=== PATIENT | male | born 1985 | race Caucasian/White ===

== ENCOUNTER 2018-10-26 09:18 | Outpatient (CLI) | payer OTHER | END 2018-10-26 09:19 | disposition home or self-care (01) | LOC: C.PAT 09:18 | DX: R31.9 Hematuria, unspecified (principal) ==

== ENCOUNTER 2018-10-30 11:37 | Day surgery (SDC) | payer OTHER ==
[2018-10-26 10:01] VITALS: BMI 36.1
[2018-10-30] MEDS ORDERED: Iohexol 240 (50 ml) ONE (12:40)
[2018-10-30] MEDS ORDERED: Lidocaine 2% Jelly (Uro-Jet) ONE (12:40)
[2018-10-30] MEDS ORDERED: Midazolam 2 MG/2 ML VIAL ONE ×2 (13:08→13:24)
[2018-10-30] MEDS: cefTRIAXone 1 gm 1 GM/100 ML BAG IVPB ONE ×2 (13:14→13:20)
[2018-10-30] MEDS ORDERED: HYDROmorphone 0.5 mg/0.5 ml ISec IVP PRN (13:42)
[2018-10-30 14:17] VITALS: PULSE 65; RESP 14; TEMP 97.6
[2018-10-30 14:27] VITALS: O2SAT 99
[2018-10-30 15:06] VITALS: BP 123/69
--- NOTE | 2018-10-31 01:31 | OP ---
PROCEDURE DATE: 10/30/2018 PREOPERATIVE DIAGNOSES: Hematuria, voiding dysfunction, bladder stones. POSTOPERATIVE DIAGNOSES: Hematuria, voiding dysfunction, bladder stones. PROCEDURE: Cystoscopy. SURGEON: Stepan Corrales MD FINDINGS: 1. Normal anterior urethra. 2. No strictures. The verumontanum is not overly visually occlusive, relatively within normal limits. 3. The bladder is mildly trabeculated and stone identified. COMPLICATIONS: There were no complications. No bladder tumors are seen. ESTIMATED BLOOD LOSS: Less than 10 mL. INDICATION: See history and physical. This is a very pleasant gentleman, here for the above procedure. He has a history of spinal surgery as a kid. He has seen Dr. Menendez. He does not seen anybody recently. He is here now for further testing. As above mentioned, he also needs further diagnostic studies and workup for his neurogenic bladder in a 33-year-old. DESCRIPTION OF PROCEDURE: After obtaining informed consent, the patient was placed on the table. Routine monitors were placed. Time-out was called to confirm patient and positioning. The patient was placed in a supine position. Time-out was called. Given this situation, we decided not to place him in lithotomy. We use . No strictures. Pictures were taken and saved. Throughout the procedure, the patient is stable throughout. We went over to distend his bladder. We identified the stone. The patient tolerated the procedure without any complication. We could discuss the options with the patient. further management of stones. We need clearance, and then also the issue would be going in lithotomy, and we have to try to figure out how to do that. If we were able to do lithotomy, we will consider treating stone. We have to discuss the options that are available and the necessity. Further plans, we will follow. The patient tolerated the procedure without complications. Stepan Corrales MD
--- NOTE | 2018-10-31 06:53 | HP ---
UROLOGY ADMISSION HISTORY AND PHYSICAL REASON FOR ADMISSION: For cystoscope. HISTORY OF PRESENT ILLNESS: Mr. Vaca is a very pleasant gentleman. He is just 33-year-old. Mr. Vaca has a history of hematuria. He has a longstanding history of spinal tumor. He had surgery when he is a kid. He is in a wheelchair now but blood in the urine, and he is here now for a cystoscope. We discussed options, locations, risks, benefits and alternatives that were discussed at length, and he is here now. Past medical and surgical history is all listed on the chart. From a urology standpoint, he is seeing Dr. Menendez when he was kid. Of late, he has not been going to anybody. He has been on catheterization. He has not had a problem until recently. He did not have trouble even catheterizing himself. to have blood in urine. I also do want to mention that the patient has a stone in his bladder. He has a stone in his urinary bladder to be seen on a CT scan, see below. This is not what we are addressing today. We are planing for cystoscope to rule out any urethral strictures. In further questioning with the patient, he has been okay but he is definitely noticing that he has been catheterized himself. Past medical and surgical as listed on the chart. He has the above listed history. MEDICATIONS: See chart. ALLERGY: SEE CHART. SOCIAL HISTORY: He is currently not working. He has a wheelchair, gets around fairly well. He is pretty alert and good spirited. He notes voiding as . He is a fairly well spirited patient. PHYSICAL EXAMINATION: GENERAL: A well developed young male, well kempt, hygienic the observation. Body habitus noted and . GENITALIA: He has a normal male phallus without discharge. No specific masses. Penis, the meatus looks within normal limits, not eroded. No appreciable testicular mass. RECTAL: Exam is deferred. DIAGNOSES: Voiding dysfunction, neurogenic bladder, hematuria, and bladder stones. ASSESSMENT: very pleasant gentleman with above history, today we are expecting. We will discuss the possibility for treatment of the stones. We also discussed because it is difficult, we may not be able to go in lithotomy position. So doing a laser may be challenging. We have to see if this is the only source of hematuria. Therefore, we have brought for the treatment. PLAN: 1. Antibiotic prophylaxis. 2. Cystoscopy. Make further plans. We will follow. Stepan Corrales MD
== END 2018-10-30 16:08 | disposition home or self-care (01) ==
LOC: C.SDS 11:37
PROVIDERS: ATTEND Urology
DX: N21.0 Calculus in bladder (principal); N32.89 Other specified disorders of bladder; N31.9 Neuromuscular dysfunction of bladder, unspecified; R31.9 Hematuria, unspecified; Z99.3 Dependence on wheelchair; Z86.69 Personal history of other diseases of the nervous system and sense organs; Z98.890 Other specified postprocedural states
CPT/HCPCS: 52000; C1758; J0696

== ENCOUNTER 2018-12-13 12:07 | Day surgery (SDC) | payer OTHER ==
[2018-10-26 10:01] VITALS: BMI 36.1
[2018-12-13 12:38] LABS: BASO % 0.8 % (0.0-2.0); EOS # 0.1 K/uL (0.0-0.7); EOS % 1.2 % (0.0-4.0); HEMOGLOBIN 16.5 g/dL (12.0-18.0); LYMPH # 1.7 K/uL (1.0-4.3); LYMPH % 27.6 % (20.0-40.0); MEAN CORPUSCULAR HEMOGLOBIN 31.6 pg (27.0-31.0); MEAN CORPUSCULAR HGB CONC 35.2 g/dL (33.0-37.0); MEAN PLATELET VOLUME 8.9 fL (7.2-11.7); MONO # 0.5 K/uL (0.0-0.8); MONO % 7.8 % (0.0-10.0); NEUT # 3.9 K/uL (1.8-7.0); NEUT % 62.6 % (50.0-75.0); RBC 5.23 Mil/uL (4.40-5.90); RED CELL DISTRIBUTION WIDTH 13.3 % (11.5-14.5); WHITE BLOOD COUNT 6.3 K/uL (4.8-10.8)
[2018-12-13 12:47] LABS: PARTIAL THROMBOPLASTIN TIME 32.9 SECONDS (21-34); PROTHROMBIN TIME 11.2 SECONDS (9.7-12.2)
[2018-12-13 12:53] LABS: BLOOD UREA NITROGEN 16 mg/dL (9-20); CALCIUM 9.1 mg/dl (8.6-10.4); GFR NON-AFRICAN AMERICAN > 60
[2018-12-13] MEDS ORDERED: Nitroglycerin 50mg in D5W 50 MG/250 ML BOTTLE IV ONE (15:01)
[2018-12-13] MEDS ORDERED: Midazolam 2 MG/2 ML VIAL ONE (15:09)
[2018-12-13] MEDS ORDERED: Propofol 10 mg/ml Inj (20 ML) ONE (15:09)
[2018-12-13] MEDS ORDERED: cefTRIAXone 1 gm 1 GM/100 ML BAG IVPB ONE (15:12)
[2018-12-13] MEDS ORDERED: Lidocaine 2% Jelly (Uro-Jet) ONE (15:22)
[2018-12-13 16:44] VITALS: TEMP 97.8
[2018-12-13 17:29] VITALS: BP 112/69; PULSE 68; RESP 18; O2SAT 99
--- NOTE | 2018-12-19 15:24 | OP ---
PROCEDURE DATE: 12/13/2018 PREOPERATIVE DIAGNOSES: Urinary retention, bladder calculi and hematuria, voiding dysfunction. POSTOPERATIVE DIAGNOSES: Urinary retention, bladder calculi and hematuria, voiding dysfunction. PROCEDURE: Cystoscopy only. (We were not able to perform the cystolitholapaxy as planned, see the body of the report). ESTIMATED BLOOD LOSS: Less than 10 mL. COMPLICATIONS: No complications. INDICATIONS: See history and physical for the details. The patient with history of spinal surgery from tumor . The patient has a bowel regimen and a urine regimen. What we found is he has recurrent infections and a bladder stone. We brought him to have cystolitholapaxy; however, today we were not able to put him in lithotomy position due to his back. We are going to discuss that with this gentleman at the end. Today, we just wanted to confirm the original plan decided was cystolitholapaxy, but this was not amendable today. See the plan as the end. UROLOGY FINDINGS: Normal anterior urethra, no stricture. The veru is minimally visually occlusive, normal for age. There is about a 1 to 2 cm bladder stone and there is also debris that is floating around. There were no complications. INDICATIONS: See history and physical. DESCRIPTION OF PROCEDURE: After obtaining informed consent, the patient was placed on the table. Before he went to sleep, we explained to the patient we are going to give him sedation. We were not able to do the procedure. He will not be able to put in lithotomy position. I tried gently while he was awake . 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 He is able to go actually almost flat on a flat back, but I could not place him in lithotomy position. So, the procedure that should be is as follows. He was given anesthesia. Explained all to the patient what our diagnosis was. We used a flexible scope with the patient really pretty much sitting up on pillows. We inspected, urethra has no stricture. The verumontanum is minimally visually occlusive. There was lot of debris in the bladder. There was about a 1 to 2 cm stone. Pictures were taken and saved. At this point, we emptied the bladder. The patient was transferred to the recovery room in stable condition having tolerated the procedure well without any complication. Stepan Corrales MD [facility] # [id number]
--- NOTE | 2018-12-20 06:26 | HP ---
REASON FOR ADMISSION: Treatment of bladder stones. INDICATIONS: This is a very pleasant gentleman, who has a history of spinal tumor and spinal surgery. He has history now of bowel regimen and urinary infection. He has had recurrent urinary tract infections. He is here to discuss options. He has a bladder stone and we are going to remove it (see the addendum at the end of this pleasant consult). PAST MEDICAL AND SURGICAL HISTORY: As listed in the chart. REVIEW OF SYSTEMS: As listed above. Otherwise, noncontributory. On a social note, extremely pleasant about the whole matter. In terms of coming to the office, in terms of waiting and scheduling. MEDICATIONS: No listed medications. ALLERGIES: No listed allergies. PHYSICAL EXAMINATION: GENERAL: A well-nourished male. He has a wheelchair. He is actually in a wheelchair in the office. He is not ambulatory. He had a spinal surgery. He actually . He has a . Exam is as listed, but otherwise completely unremarkable. DIAGNOSES: Urolithiasis, recurrent urinary tract infections, bladder stones, hematuria. ASSESSMENT AND PLAN: In summary, a very pleasant gentleman who has had spinal surgery for a tumor. He is very pleasant about the matter but he does not walk. Today, we brought him in for a cystoscopy and a cystolitholapaxy. However, see the operative note itself. After we discussed options with the patient, it was recognized that we would not be able to in supine position. We note in the chart. Basically, we have found debris and bladder stones. I think this contributes to his infection in a significant way, but we need to discuss the options and the plans in terms of the possibility to get rid of the bladder stones. This cannot be done in a lithotomy position and I do not think we can get a stone laser through the scope, but we will have to consider that as an option. This may be something that will be sent out to an academic place. There are other possibilities, and I would not recommend an open operation to discuss all the options. Stepan Corrales MD [facility] # [id number]
== END 2018-12-13 17:20 | disposition home or self-care (01) ==
LOC: C.SDS 12:07
PROVIDERS: ATTEND Urology
DX: N21.0 Calculus in bladder (principal); R31.9 Hematuria, unspecified
CPT/HCPCS: 36415; 52000; 80048; 85025; 85610; 85730; J0696